=== PATIENT | female | born 1960 | race Caucasian/White ===

== ENCOUNTER → 2017-05-02 | Outpatient (CLI) | payer OTHER ==
[2016-03-02 12:45] VITALS: BP 172/79
[~2017-05-02] MED LIST: ASPIRIN ADULT L81 M3 PO; ATORVASTATIN CA10 MG PO; BUSPIRONE HYDRO10 MG PO; CLONIDINE HYDR0.2 MG PO; HCTZ 25MG25 MG PO; METOPROLOL SUCC25 M1 PO; NEFAZODONE150 MG PO; OMEPRAZOLE D/R20 MG PO; SINGULAIR PO; VENLAFAXINE HY150 MG PO
== END ==
LOC: RAD 11:21
DX: Z12.31 Encounter for screening mammogram for malignant neoplasm of breast (principal)
CPT/HCPCS: G0202

== ENCOUNTER → 2017-05-07 | Outpatient (CLI) | payer OTHER ==
[2016-03-02 12:45] VITALS: BP 172/79
== END ==
LOC: RAD 13:34 → EDSTATUS 13:36
DX: R10.31 Right lower quadrant pain (principal)

== ENCOUNTER → 2017-05-12 | Outpatient (CLI) | payer OTHER ==
[2016-03-02 12:45] VITALS: BP 172/79
== END ==
LOC: LAB 10:54
DX: R10.31 Right lower quadrant pain (principal)

== ENCOUNTER → 2017-11-26 | Outpatient (CLI) | payer OTHER ==
[2016-03-02 12:45] VITALS: BP 172/79
[2017-11-26 19:49] LABS: ALBUMIN 4.5 g/dL (3.5-5.0); BUN/CREATININE RATIO 14.2 (6.0-26.0); CALCIUM 9.9 mg/dL (8.4-10.2); POTASSIUM 3.8 mmol/L (3.6-5.0); TOTAL BILIRUBIN 0.2 mg/dL (0.2-1.3); TOTAL PROTEIN 7.9 g/dL (6.3-8.2)
[2017-11-26 19:52] LABS: HEMATOCRIT 37.4 % (37.0-47.0); HEMOGLOBIN 12.4 g/dL (12.5-16.0); MEAN CELL VOLUME 95 fl (78-100); MEAN CORPUSCULAR HEMOGLOBIN 32 pg (27-31); MEAN CORPUSCULAR HGB CONC 33 g/dL (33-37); MEAN PLATELET VOLUME 10.5 fl (7.4-10.4); PLATELET COUNT 228 K/mm3 (130-400); RED BLOOD COUNT 3.94 M/mm3 (4.10-5.30); RED CELL DISTRIBUTION WIDTH 13.4 % (11.5-14.5); WHITE BLOOD COUNT 6.5 K/mm3 (4.8-10.8)
[2017-11-26 20:06] LABS: URINE APPEARANCE CLEAR; URINE BILIRUBIN NEGATIVE (NEGATIVE); URINE BLOOD NEGATIVE (NEGATIVE); URINE COLOR YELLOW; URINE GLUCOSE NEGATIVE (NEGATIVE); URINE KETONE NEGATIVE (NEGATIVE); URINE LEUKOCYTE ESTERASE 1+ (NEGATIVE); URINE NITRATE NEGATIVE (NEGATIVE); URINE PROTEIN(semi-quant) NEGATIVE (NEGATIVE); URINE UROBILINOGEN NORMAL (NORMAL)
[2017-11-26 22:29] LABS: LYMPHOCYTE 34 % (20-51); MONOCYTE 9 % (3-10); NEUTROPHILS 55 % (42-75)
== END ==
LOC: LAB 17:10
PROVIDERS: Nurse Practitioner Family
DX: Z01.419 Encounter for gynecological examination (general) (routine) without abnormal findings (principal); E78.2 Mixed hyperlipidemia; R73.01 Impaired fasting glucose; I10 Essential (primary) hypertension; J45.20 Mild intermittent asthma, uncomplicated; Z88.2 Allergy status to sulfonamides; Z91.040 Latex allergy status

== ENCOUNTER → 2018-03-31 | Outpatient (CLI) | payer OTHER ==
[2016-03-02 12:45] VITALS: BP 172/79
== END ==
LOC: LAB 14:44
DX: R53.83 Other fatigue (principal)

== ENCOUNTER → 2018-11-26 | Outpatient (CLI) | payer OTHER ==
[2016-03-02 12:45] VITALS: BP 172/79
[2018-11-26 12:15] LABS: EOS % 0.2 % (1.0-5.0); HEMATOCRIT 36.9 % (37.0-47.0); LYMPH# 1.5 (1.50-4.00); MEAN CELL VOLUME 95 fl (78-100); MEAN CORPUSCULAR HEMOGLOBIN 31 pg (27-31); MEAN CORPUSCULAR HGB CONC 33 g/dL (33-37); MONO # 0.5 (0.20-0.80); NEU # 2.9 (1.40-6.50); PLATELET COUNT 201 K/mm3 (130-400); RED BLOOD COUNT 3.88 M/mm3 (4.10-5.30); RED CELL DISTRIBUTION WIDTH 13.7 % (11.5-14.5); WHITE BLOOD COUNT 4.9 K/mm3 (4.8-10.8)
[2018-11-26 12:28] LABS: ALBUMIN 4.4 g/dL (3.5-5.0); CALCIUM 10.2 mg/dL (8.4-10.2); TOTAL BILIRUBIN 0.4 mg/dL (0.2-1.3); TOTAL PROTEIN 7.5 g/dL (6.3-8.2)
== END ==
LOC: MAMMO 10:00 → LAB 10:08 → MAMMO 10:08
PROVIDERS: Family Medicine
DX: Z12.31 Encounter for screening mammogram for malignant neoplasm of breast (principal)